=== PATIENT | female | born 1970 | race Caucasian/White ===

== ENCOUNTER 2021-09-18 10:56 | Inpatient (IN) | payer OTHER, SELFPAY ==
--- NOTE | ~2021-09-18 | CT_ITS ---
EXAMINATION: CT guide absc cath placement, CT guide absc cath placement DATE: 09/19/2021 14:54 (accession [id number]), 09/19/2021 14:51 (accession [id number]) INDICATION: Multiple intraperitoneal abscesses TECHNIQUE: The procedure including the risks and benefits was discussed with the patient. Risks discu ssed included bleeding and infection. The patient understood the risks and benefits and agreed to pro ceed. The patient was confirmed to be receiving appropriate antibiotic coverage. Attention was first turned to the largest abscess cavity in the central lower abdomen and upper pelvis. The patient was p laced in a left lateral decubitus position. The skin overlying the right lower quadrant was prepped a nd draped in usual sterile fashion. Moderate sedation was provided with successive administration of 50 mcg fentanyl and 1 mg Versed. A total of 200 mcg fentanyl and 2 mg Versed was administered through out the course of the procedure. There are 2 more accurately delineate the course of the bowel a scou t CT was obtained following administration of 100 mL Omnipaque-300 intravenous contrast. Anesthetic w as administered with 1% lidocaine subcutaneously. An 18-gauge trochar needle was advanced into the la rgest abscess cavity utilizing intermittent CT guidance. The inner needle was removed and a J-wire ad vanced into the abscess cavity with position confirmed by CT. Utilizing Seldinger technique the needl e was removed over the wire and the tract serially dilated to 12 Haitian. A 12 Fr catheter was inserte d over the wire into the peritoneal fluid collection. The loop was formed and following confirmation of positioning by CT the pigtail tip was locked and the wire removed. The catheter was stitched to th e skin with suture. Antibiotic appointment and a sterile dressing were applied. An additional adhesiv e fixation device was applied. An aliquot of 10 mL of reynoso purulent appearing fluid was aspirated and sent to the lab for Gram stain and cultures. The catheter was then attached to suction drainage. Attention was then turned to the caudal-most abscess cavity in the deep pelvis. The patient was place d in prone position. Labor Specialist CT images of the pelvis were obtained. The skin overlying the left side of the coccyx was prepped and draped in usual sterile fashion. An additional 1% lidocaine was utilized for local anesthesia. An 18-gauge trochar needle was advanced into the caudal-most pelvic abscess cav ity utilizing intermittent CT guidance. The inner needle was removed and a J-wire advanced into the a bscess cavity with position confirmed by CT. Utilizing Seldinger technique the needle was removed ove r the wire and the tract serially dilated to 8 Haitian. An 8.5 Fr catheter was inserted over the wire into the pelvic peritoneal fluid collection. The loop was formed and following confirmation of positi oning by CT the pigtail tip was locked and the wire removed. The catheter was stitched to the skin wi th suture. Antibiotic appointment and a sterile dressing were applied. An aliquot of 4 mL of reynoso puru lent appearing fluid was aspirated and sent to the lab for Gram stain and cultures. The catheter was then attached to suction drainage. There were no immediate complications. The dose-length product was 1957.80 mGy-cm. FINDINGS: CT images demonstrate the catheter within the first a 8 x 7 cm abscess cavity in the centra l lower abdomen and upper pelvis. Subsequent CT images demonstrate a second smaller caliber drainage catheter positioned within a 5.4 x 4.2 cm abscess cavity positioned between the vaginal cuff and the rectum. 10 mL fluid was aspirated for testing from the larger abdominal abscess cavity and 4 mL fluid was aspirated for testing from the more caudal pelvic abscess cavity. IMPRESSION: 1. Successful CT-guided abscess drainage of the largest 8 x 7 cm abscess cavity in the central lower abdomen/upper pelvis. 10 mL fluid was
--- NOTE | ~2021-09-18 | CT_ITS ---
EXAMINATION: CT abdomen pelvis w con INDICATION: Abdominal pressure, nausea and vomiting TECHNIQUE: Computed tomographic images of the abdomen and pelvis were obtained after the administrati on of 100 cc of Omnipaque 350 intravenous contrast. The dose-length product (DLP) was 1535.18 mGy-cm. Automated exposure control and iterative reconstruction technique were employed. COMPARISON: None available FINDINGS: Minimal dependent atelectasis is present in the lung bases. The heart size is normal. The l iver, spleen, pancreas, gallbladder, and adrenal glands are normal. The kidneys are unremarkable. The re is an appendicolith at the base of the appendix. The dilated appendix measures up to 1.5 cm. There is perforation at the tip of the appendix with multiple abdominal and pelvic abscesses. There is an approximately 10.7 x 6.1 cm abscess situated between small bowel loops in the midline pelvis. There a re abscesses measuring up to 3.5 cm near the terminal ileum. There is an abscess or pair of abscesses in the hysterectomy bed measuring 8.6 x 5.7 cm. There is an abscess near the tip of the appendix abu tting the liver. There is mild lumbar spondylosis. IMPRESSION: 1. Perforated appendicitis with multiple abdominal and pelvic abscesses. These findings were discusse d with Dr. Kristian Montalvo DO in the Emergency Department at 1331 hours on 09/18/2021. Reviewed, dictated and finalized at location A. IMPRESSION: 1. Perforated appendicitis with multiple abdominal and pelvic abscesses. These findings were discussed with Dr. Kristian Montalvo DO in the Emergency Departm ent at 1331 hours on 09/18/2021.
[2021-09-18 10:59] VITALS: BP 150/92; PULSE 106; RESP 18; TEMP 36.6; O2SAT 99
[2021-09-18 11:15] LABS: Hematocrit 40.7 % (37.0-47.0); Hemoglobin 13.5 g/dL (12.0-15.0); Mean Corpuscular HGB Conc 33.2 g/dl (32-36); Mean Corpuscular Hemoglobin 31.4 pg (26-34); Mean Corpuscular Volume 94.7 fl (80-100); Mean Platelet Volume 10.6 fl (7.4-10.4); Platelet Count Result 476 k/mm3 (150-375); Red Cell Distribution Width 14.8 % (11.5-14.5); White Blood Count 25.7 K/mm3 (4.5-10.0)
[2021-09-18 11:28] LABS: Alanine Aminotransferase 91 U/L (4-35); Alkaline Phosphatase 289 U/L (38-126); Anion Gap 8 mmol/L (8-16); Aspartate Amino Transferase 86 U/L (14-36); Bilirubin,Total 1.1 mg/dL (0.2-1.3); Blood Urea Nitrogen 13 mg/dL (7-17); Calcium 8.8 mg/dL (8.4-10.2); Carbon Dioxide 26 mmol/L (22-30); Chloride 97 mmol/L (98-107); Estimated CRCL calculation 85 ml/min; Estimated Glomerular Filt Rate > 60; Glucose 109 mg/dL (65-110); Lipase 40 U/L (23-300); Potassium 3.6 mmol/L (3.4-5.0); Sodium 131 mmol/L (137-145)
[2021-09-18 11:43] LABS: Albumin Level 3.8 g/dL (3.5-5.1)
[2021-09-18 11:44] LABS: Atypical Lymphocytes Present; Band Neutrophils Percent 3 % (0-6); Lymphocytes Absolute Manual 1.54 K/mm3 (1.1-4.5); Monocytes Absolute Manual 1.54 K/mm3 (0.1-0.90); Monocytes Percent Manual 6 % (3-9); Neutrophils Absolute Manual 22.61 K/mm3 (1.7-7.2); Neutrophils Percent Manual 85 % (46-73); Platelet Estimate Adequate (Adequate); Total Cells Counted 100
[2021-09-18 12:39] VITALS: BP 139/93; PULSE 100; RESP 18; O2SAT 95
--- NOTE | 2021-09-18 12:45 | ED.ABDPAIN ---
HPI - Abdominal Pain General Chief Complaint: Abdominal Pain Stated Complaint: possible obstruction, sent from Time Seen by Provider: 09/18/21 12:30 Source: RN notes reviewed History of Present Illness HPI narrative: Patient presents emergency department from urgent care for abdominal pain. Patient states approximately 1 week ago she vomited x1 she states since that time she has had progressive bloating of her abdomen with abdominal pain in the bilateral lower abdomen described as cramping in nature states her last bowel movement was over 10 days ago she states she is had no emesis since approximately 1 ago she denies any fevers or chills chest pain shortness of breath or any other symptoms. She gone to urgent care today and had an x-ray that showed a blockage and was recommended come the ER for further evaluation Related Data Allergies Allergy/AdvReac Type Severity Reaction Status Date / Time No Known Allergies Allergy Verified 09/18/21 12:57 Review of Systems Review of Systems: Gen.: Denies fevers or chills ENT: Denies congestion Respiratory: Denies shortness of breath or cough CV: Denies chest pain or palpitations GI: See HPI Musculoskeletal: Denies back pain or muscle pain Neuro: Denies numbness, tingling, weakness or focal weakness Skin: Denies rash Except as documented, all other systems reviewed and negative [facility] Past Medical History Medical History (Updated 09/18/21 @ 14:03 by rKistian Montalvo DO) Rosacea Social History Social History (Updated 09/18/21 @ 12:46 by Kristian Montalvo DO) Smoking status: Never smoker Exam Narrative: APPEARANCE: No acute distress, nontoxic, resting in bed HEENT: Normocephalic, atraumatic, OMM RESPIRATORY: No respiratory distress, clear to auscultation bilaterally with no rhonchi wheezing or rales CARDIOVASCULAR: RRR s murmur ABDOMINAL: Firm and distended tender palpation right lower quadrant left lower quadrant no tenderness noted quadrant left upper quadrant no rebound or guarding MUSCULOSKELETAl: Moves all extremities. No clubbing, cyanosis or edema. NEURO: Awake and alert. Following commands, speech normal, no focal deficits SKIN:: Warm, dry. Normal Color PSYCHIATRIC: Normal affect/mood Course Course Emergency Course: Discussed with Dr. Montes presentation work-up agrees with admission Discussed with patient and family results of workup and diagnosis. Discussed need for admission. Patient and family understand and agree to current treatment plan Vital Signs Vital signs: Vital Signs Temperature 97.8 F 09/18/21 10:59 Pulse Rate 106 H 09/18/21 10:59 Respiratory Rate 18 09/18/21 10:59 Blood Pressure 150/92 H 09/18/21 10:59 Pulse Oximetry 99 09/18/21 10:59 Temperature 97.8 F 09/18/21 10:59 Pulse Rate 100 09/18/21 12:39 Respiratory Rate 18 09/18/21 12:39 Blood Pressure 139/93 H 09/18/21 12:39 Pulse Oximetry 95 09/18/21 12:39 MDM - Abdominal Pain Lab Data Result diagrams: 09/18/21 11:07 09/18/21 11:07 Labs: Lab Results 09/18/21 09/18/21 09/18/21 Range/Units 11:07 11:07 12:55 WBC 25.7 H (4.5-10.0) K/mm3 RBC 4.30 (4.2-5.4) M/mm3 Hgb 13.5 (12.0-15.0) g/dL Hct 40.7 (37.0-47.0) % MCV 94.7 (80-100) fl MCH 31.4 (26-34) pg MCHC 33.2 (32-36) g/dl RDW 14.8 H (11.5-14.5) % Plt Count 476 H (150-375) k/mm3 MPV 10.6 H (7.4-10.4) fl Immature Gran % (Auto) Not Reportable Neut % (Auto) Not Reportable Lymph % (Auto) Not Reportable [place] % (Auto) Not Reportable Eos % (Auto) Not Reportable Baso % (Auto) Not Reportable Lymph # (Auto) Not Reportable [place] # (Auto) Not Reportable Eos # (Auto) Not Reportable Baso # (Auto) Not Reportable Abs Immat Gran (auto) Not Reportable Absolute Neuts (auto) Not Reportable Absolute Nucleated RBC Not Reportable Total Counted 100 Neutrophils % (Manual)
[2021-09-18] MEDS: SODIUM CHLORIDE 0.9% IV 1,000 ML 999 ML IV CONT (12:57)
[2021-09-18] MEDS: KETOROLAC 30 MG/ML VIAL (*BKC) IV PUSH (12:58)
[2021-09-18 13:09] LABS: Bacteria Urine 2+ /hpf; Mucus Urine Rare /lpf; Squamous Epithelial Cell Urine Occasional /hpf (Few); WBC Urine 0-3 /hpf
[2021-09-18 13:10] LABS: Appearance Urine Clear (Clear); Bilirubin Urine 1+ (Negative); Blood Urine Trace-lysed (Negative); Color Urine Yellow (Yellow); Glucose Urine UA Negative (Negative); Ketones Urine 2+ mg/dL (Negative); Leukocyte Esterase Ur Negative LEU/UL (Negative); Nitrate Urine Negative (Negative); Protein Urine 1+ mg/dL (Negative); Urobilinogen Urine 0.2 mg/dL (<2.0)
[2021-09-18 13:12] LABS: Add Urine Microscopic? YES
[2021-09-18 13:13] LABS: Lactic Acid Reflex 0.8 mmol/L (0.7-2.0)
[2021-09-18 14:50] VITALS: BMI 39.7
--- NOTE | 2021-09-18 14:50 | ADMGEN ---
This patient, Johana Muñoz, was admitted to 3 [facility] Surg Room 320-01. Patient/family oriented to hospital policies and general routines including ID bracelet, bed and alarms, visiting hours, pain management, procedures, bathroom and other care routines, personal items, smoking policy, room service/diet, and visiting hours. Information on how to activate the Rapid Response Team has been discussed. Patient/Family are encouraged to report perceived risks to care and to ask questions if they do not understand what they are told or what they should do.
[2021-09-18 14:52] VITALS: BP 154/95; PULSE 95; RESP 18; O2SAT 97
[2021-09-18 15:00] VITALS: BP 144/95; PULSE 95; RESP 18; TEMP 36.7; O2SAT 97
--- NOTE | 2021-09-18 15:19 | PM.IMHP ---
H&P: HPI History of Present Illness Date/Time: 09/18/21 15:19 Chief Complaint: Lower abdominal pain Narrative: This is a 50-year-old obese female who presented to the emergency department with complaints of lower abdominal pain. She was directed from a [place] urgent care today with concerns of a bowel obstruction. The patient reportedly began having symptoms 8 days ago when she developed lower abdominal pain. She developed nausea and had an episode of vomiting that night. The following day, her abdominal pain worsened and reportedly was aggravated by any movement or walking. She reports her abdominal pain began improving by Saturday and she was able to go to work all last week. She was taking Tylenol and Aleve p.m. because she thought she had strained a muscle from vomiting. She reports having 4-5 watery stools per day for the past week, but still felt bloated and thought she was constipated. She tried to take magnesium citrate without any relief in her bloating. She continued to have diarrhea. Her main complaint over the past few days is the bloating discomfort. She continues to have lower abdominal pain, but reports it is much more mild now in comparison to the first few days. She reports chills, but has checked her temperature multiple times without a fever. She reports a poor appetite over the past week as well with little food intake, but has been drinking plenty of fluids. Today, due to her persistent symptoms, she decided to go to an urgent care for further evaluation. They had taken an abdominal x-ray and were concerned about a bowel obstruction, therefore she was sent to the ER for further evaluation. CT scan of the abdomen and pelvis showed perforated appendicitis with multiple intra-abdominal abscesses. The labs showed white blood cell count of 25,700. Her heart rate was 106 in the ER and she was afebrile. Our service was consulted by the ED physician and she is admitted in the setting. The patient is now seen on the medical floor. She reports passing gas and has had 3 liquid bowel movements today. She denies having a colonoscopy in the past, but has had a negative Cologuard within the past year. Review of Systems Review of Systems: All systems reviewed & are unremarkable except as noted in HPI and below Constitutional: Constitutional: Reports as per HPI, Reports chills, Denies fatigue, Denies fever(s) and Reports poor appetite Eyes: Eyes: Reports no additional eye complaints ENT: Reports system reviewed and no additional complaints, except as documented Cardiovascular: Cardiovascular: Reports no additional cardiovascular complaints, Denies chest pain and Denies leg edema Respiratory: Respiratory: Reports no additional respiratory complaints, Denies cough and Denies dyspnea Gastrointestinal: Gastrointestinal: Reports as per HPI, Reports no additional gastrointestinal complaints, Reports abdominal pain (lower), Denies melena, Reports bloating, Denies hematochezia, Reports diarrhea, Reports vomiting and Denies hematemesis Genitourinary: Genitourinary: Reports no additional female genitourinary complaints, Denies hematuria and Denies dysuria Musculoskeletal: Musculoskeletal: Reports no additional musculoskeletal complaints, Denies deformity and Denies joint swelling Neurologic: Reports system reviewed and no additional complaints, except as documented, Denies dizziness, Denies focal weakness, Denies numbness and Denies tingling PMFSH Past Medical History Medical History Rosacea Tobacco abuse Surgical History Surgical History History of tubal ligation History of vaginal hysterectomy Family History Family History (Updated 09/18/21 @ 15:31 by ROHIT Reyes) Mother Hypertension Social History Social History Social History: PC
[2021-09-18] MEDS: SODIUM CHLORIDE 0.9% IV 1,000 ML 125 ML IV CONT (15:28)
[2021-09-18 20:16] VITALS: O2SAT 95
[2021-09-18] MEDS: MORPHINE SULFATE (*CRX) 2 MG/ML INJ IV PUSH (21:53)
[2021-09-18 22:00] VITALS: BP 147/91; PULSE 98; RESP 18; TEMP 36.8; O2SAT 96
[2021-09-19] VITALS (27 sets, daily range): BP systolic 107–165; BP diastolic 71–120; PULSE 90–103; RESP 16–29; TEMP 36.2–37; O2SAT 93–98
[2021-09-19] MEDS: SODIUM CHLORIDE 0.9% IV 1,000 ML 125 ML IV CONT ×4 (01:33→23:34)
[2021-09-19] MEDS: MORPHINE SULFATE (*CRX) 2 MG/ML INJ IV PUSH ×5 (01:41→23:33)
[2021-09-19 06:09] LABS: Hematocrit 34.2 % (37.0-47.0); Hemoglobin 11.6 g/dL (12.0-15.0); Mean Corpuscular HGB Conc 33.9 g/dl (32-36); Mean Corpuscular Hemoglobin 31.7 pg (26-34); Mean Corpuscular Volume 93.4 fl (80-100); Mean Platelet Volume 10.5 fl (7.4-10.4); Platelet Count Result 467 k/mm3 (150-375); Red Blood Count 3.66 M/mm3 (4.2-5.4); Red Cell Distribution Width 14.7 % (11.5-14.5); White Blood Count 22.4 K/mm3 (4.5-10.0)
[2021-09-19 06:23] LABS: Alanine Aminotransferase 91 U/L (4-35); Alkaline Phosphatase 216 U/L (38-126); Anion Gap 6 mmol/L (8-16); Aspartate Amino Transferase 92 U/L (14-36); Bilirubin,Total 0.8 mg/dL (0.2-1.3); Blood Urea Nitrogen 11 mg/dL (7-17); Carbon Dioxide 28 mmol/L (22-30); Chloride 103 mmol/L (98-107); Estimated CRCL calculation 85 ml/min; Estimated Glomerular Filt Rate > 60; Glucose 85 mg/dL (65-110); Potassium 3.6 mmol/L (3.4-5.0); Sodium 137 mmol/L (137-145)
[2021-09-19 06:38] LABS: Atypical Lymphocytes Present; Band Neutrophils Percent 7 % (0-6); Lymphocytes Absolute Manual 1.79 K/mm3 (1.1-4.5); Metamyelocytes Percent 2 %; Monocytes Absolute Manual 1.34 K/mm3 (0.1-0.90); Monocytes Percent Manual 6 % (3-9); Neutrophils Absolute Manual 18.81 K/mm3 (1.7-7.2); Neutrophils Percent Manual 77 % (46-73); Total Cells Counted 100
[2021-09-19 06:39] LABS: Anisocytosis 1+ (NORMAL); Hypochromasia 1+ (NORMAL)
[2021-09-19 08:36] LABS: INR 1.2; Prothrombin Time 14.4 Seconds (11.1-14.7)
--- NOTE | 2021-09-19 10:57 | PC.NURSE ---
pt scheduled for percutaneous drain placement this afternoon around 1230pm and 1300
--- NOTE | 2021-09-19 11:39 | PM.PNGS ---
Progress Note: A&P Assessment and Plan (1) Acute perforated appendicitis: Code(s): K35.32 - Acute appendicitis with perforation and localized peritonitis, without abscess Status: Acute Assessment and Plan: Continue IV antibiotics. WBC trending down, afebrile. Okay to start clear liquids once back from the percutaneous drainage. Monitor labs. Encouraged walking the halls. (2) Intra-abdominal abscess: Code(s): K65.1 - Peritoneal abscess Status: Acute Assessment and Plan: Plan for percutaneous drainage in Radiology today. Continue IV antibiotics. (3) Sepsis: Code(s): A41.9 - Sepsis, unspecified organism Status: Acute Assessment and Plan: Secondary to perforated appendicitis with abscess. Continue IV antibiotics and IV fluids. Blood cultures pending. WBC trending down. Monitor labs. (4) Obesity, morbid, BMI 40.0-49.9: Code(s): E66.01 - Morbid (severe) obesity due to excess calories Status: Acute (5) Tobacco abuse: Code(s): Z72.0 - Tobacco use Status: Inactive (6) Transaminitis: Code(s): R74.01 - Elevation of levels of liver transaminase levels Status: Acute Assessment and Plan: AST, ALT, and alk phos slightly elevated on admission, same today. Will add Hepatitis panel. Trend labs. Additional Plan I have discussed the patient's case and plan of care with Dr. Montes. Subjective Subjective Date/Time Seen: 09/19/21 11:39 Patient reports: still having pain, flatus, bowel movement and afebrile Interval history: Patient seen and examined. Reports feeling about the same as yesterday. She is passing gas and had a bowel movement last night. Denies any nausea. Scheduled to go down to Radiology for perc drain today. Currently NPO for that procedure. Review of Systems Review of Systems: All systems reviewed & are unremarkable except as noted in HPI and below Exam Const: General: comfortable, no acute distress and awake Orientation/consciousness: patient oriented x3 Resp: Effort & Inspection: no respiratory distress Auscultation: clear to auscultation bilaterally Cardio: Rate: regular rate Rhythm: regular rhythm GI: Inspection: distended and obesity GI Palp: Yes Soft to palpation, Yes Tenderness to palpation present (GI) (mid upper abdomen and entire lower abd), Yes Guarding due to palpation present (GI) (lower abdomen), No Hernia present and No Rebound tenderness present Auscultation: normal bowel sounds Skin: General skin exam: normal color Neuro: General: moves all extremities and no focal motor deficits Extrem: General: normal to inspection Psych: Insight: Good insight present (Psych) Judgement: Good judgement present (Psych) Objective Data Vital Signs Vital Signs: Vital Signs - 24 hr 09/18/21 12:39 09/18/21 14:52 09/18/21 15:00 Temperature 98.1 F Pulse Rate 100 95 95 Respiratory Rate 18 18 18 Blood Pressure 139/93 H 154/95 H 144/95 H Pulse Oximetry 95 97 97 09/18/21 20:16 09/18/21 22:00 09/19/21 06:00 Temperature 98.2 F 97.1 F L Pulse Rate 98 92 Respiratory Rate 18 18 Blood Pressure 147/91 H 132/80 Pulse Oximetry 95 96 94 09/19/21 07:35 09/19/21 08:16 Temperature Pulse Rate 92 Respiratory Rate 18 Blood Pressure Pulse Oximetry 94 95 Intake/Output Intake/Output: Intake & Output 09/16/21 09/17/21 09/18/21 09/19/21 23:59 23:59 23:59 23:59 Intake Total 2680 1200 Output Total 400 1250 Balance 2280 -50 Meds/Results Medications: Active Medications Generic Name Dose Route Start Last Admin Trade Name Freq PRN Reason Stop Dose Admin Piperacillin/Tazobactam/Dextrose 3.375 gm in 50 mls @ 100 mls/hr 09/18/21 20:00 09/19/21 08:57 Zosyn 3.375 Gm/D5w 50ml Pm IVPB Infused Q6H [facility] Infusion Sodium Chloride 1,000 mls @ 125 mls/hr 09/18/21 13:55 09/19/21 08:44 Normal Saline Iv IV CONT 125 mls/hr .Q8H [facility] Administration A
--- NOTE | 2021-09-19 11:50 | PC.NURSE ---
pt at percutaneous drain placement in IR.
--- NOTE | 2021-09-19 12:10 | WPDMODSED ---
Moderate Sedation Note-Pt Data Patient Data Allergies Allergy/AdvReac Type Severity Reaction Status Date / Time No Known Allergies Allergy Verified 09/18/21 12:57 Home Medications Medication Instructions Recorded Confirmed Type aspirin [Adult Aspirin EC Low 81 mg PO DAILY 09/18/21 09/18/21 History Strength] cholecalciferol (vitamin D3) 50 mcg PO DAILY 09/18/21 09/18/21 History doxycycline hyclate 25 mg PO BID 09/18/21 09/18/21 History loratadine 30 mg PO DAILY 09/18/21 09/18/21 History Current Medications: Active Medications Piperacillin/Tazobactam/Dextrose (Zosyn 3.375 Gm/D5w 50ml Pm) 3.375 gm in 50 mls @ 100 mls/hr IVPB Q6H [facility] Last Infusion: 09/19/21 08:57 Dose: Infused Documented by: Sodium Chloride (Normal Saline Iv) 1,000 mls @ 125 mls/hr IV CONT .Q8H [facility] Last Admin: 09/19/21 08:44 Dose: 125 mls/hr Documented by: Acetaminophen (Ofirmev 1,000 Mg Ivpb) 1,000 mg in 100 mls @ 400 mls/hr IVPB Q6H PRN PRN Reason: Pain Rated 4-6 Stop: 09/19/21 15:39 Last Infusion: 09/19/21 06:37 Dose: Infused Documented by: Morphine Sulfate (Morphine Sulfate (*Crx) 2 Mg/Ml Inj) 2 mg IV PUSH Q2H PRN PRN Reason: Pain Rated 7-10 Last Admin: 09/19/21 01:41 Dose: 2 mg Documented by: Ondansetron HCl (Ondansetron Inj 4 Mg/2 Ml Vial) 4 mg IV PUSH Q6H PRN PRN Reason: Nausea And Vomiting Sedation/Anesthesia: No previous sedation/anesthesia problems (including family history). [facility] Past Medical History Medical History Rosacea Tobacco abuse Surgical History Surgical History History of tubal ligation History of vaginal hysterectomy Family History Family History Mother Hypertension Social History Social History Social History: PCP through [facility]: Dr. Domi Albert Years smoked: 30 Smoking status: Current every day smoker Tobacco type: cigarettes Second hand tobacco smoke exposure: No Alcohol intake: current Drinks per week: 3 Substance use: never Living arrangements: with family Additional living arrangements comments: Lives at home alone with her dog. She is not currently and has one child. 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 Gender identity (if verbalized by the patient): Female Spiritual care concerns: No Mod Sed Physical Exam Physical Exam Pre Procedural Exam: Normal: Appearance, Eyes, Nose, Neck, Airway, Lungs, Heart Rate, Heart Rhythm, Extremities and Skin and Variation: Abdomen (soft, ttp lower abd) Hours since solid foods: 12 Hours since liquid intake: 12 Mallampati Classification: class II Internal Medicine - PN: Obj Da Vital Signs Vital Signs: Vital Signs - 24 hr 09/18/21 12:39 09/18/21 14:52 09/18/21 15:00 Temperature 98.1 F Pulse Rate 100 95 95 Respiratory Rate 18 18 18 Blood Pressure 139/93 H 154/95 H 144/95 H Pulse Oximetry 95 97 97 09/18/21 20:16 09/18/21 22:00 09/19/21 06:00 Temperature 98.2 F 97.1 F L Pulse Rate 98 92 Respiratory Rate 18 18 Blood Pressure 147/91 H 132/80 Pulse Oximetry 95 96 94 09/19/21 07:35 09/19/21 08:16 Temperature Pulse Rate 92 Respiratory Rate 18 Blood Pressure Pulse Oximetry 94 95 Intake/Output Intake/Output: Intake & Output 09/16/21 09/17/21 09/18/21 09/19/21 23:59 23:59 23:59 23:59 Intake Total 2680 1200 Output Total 400 1250 Balance 2280 -50 Meds/Results Medications: Active Medications Generic Name Dose Route Start Last Admin Trade Name Freq PRN Reason Stop Dose Admin Piperacillin/Tazobactam/Dextrose 3.375 gm in 50 mls @ 100 mls/hr 09/18/21 20:00 09/19/21 08:57 Zosyn 3.375 Gm/D5w 50ml Pm IVPB Infused Q6H [facility] Infusi
--- NOTE | 2021-09-19 12:54 | PC.NURSE ---
ok to start clear liquid diet after percutaneous drain placement this shift.
--- NOTE | 2021-09-19 13:11 | SUR.OPER ---
see moderate sedation flowsheet for medication
--- NOTE | 2021-09-19 13:48 | SUR.OPER ---
this rn took over patient care for mandy walker. report received from denise galvan and dr hdz
--- NOTE | 2021-09-19 14:26 | SUR.OPER ---
end of procedure
--- NOTE | 2021-09-19 14:32 | SUR.PHASEII ---
vss, patient is a/ox3 on ra and able to sit on side of table steadily.
--- NOTE | 2021-09-19 15:14 | PC.NURSE ---
x2 percutaneous drain placed 09/19/21 in IR, drain 1. RLQ and drain 2. L buttock
[2021-09-20] MEDS: MORPHINE SULFATE (*CRX) 2 MG/ML INJ IV PUSH ×3 (05:35→14:04)
[2021-09-20 05:42] VITALS: BP 149/76; PULSE 91; RESP 18; TEMP 36.9; O2SAT 90
[2021-09-20 06:37] LABS: Basophils Percent Auto 0.2 % (0.2-1.2); Eosinophils Absolute Auto 0.1 K/mm3 (0-0.3); Eosinophils Percent Auto 0.6 % (0-4.4); Hematocrit 36.3 % (37.0-47.0); Hemoglobin 11.1 g/dL (12.0-15.0); Immature Granulocyte Absolute 1.42 K/mm3 (0.00-0.031); Immature Granulocyte Percent A 5.8 % (0-0.5); Lymphocytes Absolute Auto 1.35 K/mm3 (0.9-3.2); Lymphocytes Percent Auto 5.5 % (18.3-44.2); Mean Corpuscular HGB Conc 30.6 g/dl (32-36); Mean Corpuscular Hemoglobin 31.5 pg (26-34); Mean Corpuscular Volume 103.1 fl (80-100); Mean Platelet Volume 10.6 fl (7.4-10.4); Monocytes Absolute Auto 0.7 K/mm3 (0.1-0.6); Monocytes Percent Auto 2.9 % (2.6-8.5); Neutrophils Absolute Auto 20.8 K/mm3 (1.3-6.7); Platelet Count Result 438 k/mm3 (150-375); Red Blood Count 3.52 M/mm3 (4.2-5.4); Red Cell Distribution Width 15.5 % (11.5-14.5); White Blood Count 24.5 K/mm3 (4.5-10.0)
[2021-09-20 07:20] LABS: Hepatitis B Surface Antigen Negative (Negative)
[2021-09-20 07:24] VITALS: PULSE 91; RESP 18; O2SAT 90
[2021-09-20 07:25] LABS: HAV RESULT Negative (Negative); Hepatitis B Core IgM Result Negative (Negative)
[2021-09-20 07:37] LABS: Hepatitis C Virus Antibody Negative (Negative)
[2021-09-20 07:59] VITALS: O2SAT 95
[2021-09-20] MEDS: SODIUM CHLORIDE 0.9% IV 1,000 ML 125 ML IV CONT ×2 (08:44→18:28)
--- NOTE | 2021-09-20 11:06 | PM.PNGS ---
Progress Note: A&P Assessment and Plan (1) Acute perforated appendicitis: Code(s): K35.32 - Acute appendicitis with perforation and localized peritonitis, without abscess Status: Acute Assessment and Plan: Doing well after drains placed yesterday. Advance to full liquids today and decrease IV fluids. Continue IV Zosyn, monitor drains. (2) Intra-abdominal abscess: Code(s): K65.1 - Peritoneal abscess Status: Acute (3) Sepsis: Code(s): A41.9 - Sepsis, unspecified organism Status: Acute (4) Obesity, morbid, BMI 40.0-49.9: Code(s): E66.01 - Morbid (severe) obesity due to excess calories Status: Acute (5) Transaminitis: Code(s): R74.01 - Elevation of levels of liver transaminase levels Status: Acute Assessment and Plan: Likely related to abscesses, but will continue to monitor. Subjective Subjective Date/Time Seen: 09/20/21 11:06 Interval history: Pain improving. Tolerating clear liquids. No fevers. Passing flatus. Exam GI: Inspection: non-distended, obesity and other (Right drian with copious purulent output, Left drain with minimal serosangu) GI Palp: Yes Soft to palpation, Yes Tenderness to palpation present (GI) (mild generalized) and No Guarding due to palpation present (GI) Auscultation: normal bowel sounds Objective Data Vital Signs Vital Signs: Vital Signs - 24 hr 09/19/21 12:13 09/19/21 12:18 09/19/21 12:23 Temperature Pulse Rate 97 98 94 Respiratory Rate 18 18 26 H Blood Pressure 153/94 H 156/86 H 160/82 H Pulse Oximetry 98 93 97 09/19/21 12:28 09/19/21 12:33 09/19/21 12:38 Temperature Pulse Rate 93 90 98 Respiratory Rate 24 H 24 H 26 H Blood Pressure 142/85 H 137/113 H 136/120 H Pulse Oximetry 97 97 96 09/19/21 12:48 09/19/21 12:53 09/19/21 12:58 Temperature Pulse Rate 103 H 100 94 Respiratory Rate 22 H 20 18 Blood Pressure 142/110 H 126/93 H 142/96 H Pulse Oximetry 98 96 97 09/19/21 13:03 09/19/21 13:08 09/19/21 13:13 Temperature Pulse Rate 95 95 95 Respiratory Rate 17 22 H 18 Blood Pressure 135/81 107/71 126/102 H Pulse Oximetry 97 96 96 09/19/21 13:18 09/19/21 13:30 09/19/21 13:45 Temperature Pulse Rate 90 98 98 Respiratory Rate 23 H 28 H 19 Blood Pressure 132/73 165/111 H 154/94 H Pulse Oximetry 96 98 94 09/19/21 13:55 09/19/21 14:00 09/19/21 14:05 Temperature Pulse Rate 94 90 90 Respiratory Rate 20 29 H 28 H Blood Pressure 135/83 154/94 H 137/94 H Pulse Oximetry 95 95 96 09/19/21 14:10 09/19/21 14:15 09/19/21 14:20 Temperature Pulse Rate 95 92 92 Respiratory Rate 25 H 23 H 23 H Blood Pressure 124/96 H 150/95 H 135/92 H Pulse Oximetry 96 95 95 09/19/21 14:25 09/19/21 14:28 09/19/21 22:00 Temperature 37.0 C Pulse Rate 92 94 91 Respiratory Rate 23 H 16 16 Blood Pressure 143/94 H 143/94 H 140/82 Pulse Oximetry 95 93 93 09/20/21 05:42 09/20/21 07:24 09/20/21 07:59 Temperature 36.9 C Pulse Rate 91 91 Respiratory Rate 18 18 Blood Pressure 149/76 H Pulse Oximetry 90 90 95 Intake/Output Intake/Output: Intake & Output 09/17/21 09/18/21 09/19/21 09/20/21 23:59 23:59 23:59 23:59 Intake Total 2680 4440 1840 Output Total 400 1750 1000 Balance 2280 2690 840 Meds/Results Medications: Active Medications Generic Name Dose Route Start Last Admin Trade Name Freq PRN Reason Stop Dose Admin Piperacillin/Tazobactam/Dextrose 3.375 gm in 50 mls @ 100 mls/hr 09/18/21 20:00 09/20/21 08:32 Zosyn 3.375 Gm/D5w 50ml Pm IVPB Infused Q6H BELKIS Infusion Sodium Chloride 1,000 mls @ 75 mls/hr 09/18/21 13:55 09/20/21 08:44 Normal Saline Iv IV CONT 125 mls/hr .[id number] BELKIS Administration Acetaminophen 1,000 mg in 100 mls @ 400 mls/hr 09/20/21 07:40 09/20/21 08:17 Ofirmev 1,000 Mg Ivpb IVPB 09/21/21 07:39 Infused Q6H PRN Infusion Pain Rated 4-6 Morphine Sulfate 2 mg 09/18/21 15:40 09/20/21 08:02 Morph
[2021-09-20 14:00] VITALS: BP 116/86; PULSE 93; RESP 14; TEMP 38.1; O2SAT 94
--- NOTE | 2021-09-20 15:11 | PC.NURSE ---
reported temperature 101.1 to An
--- NOTE | 2021-09-20 15:14 | PC.NURSE ---
DO Villegas informed pt has temp 101.1 awaiting call back.
[2021-09-20 16:38] VITALS: TEMP 36.8
[2021-09-20 21:42] VITALS: BP 150/74; PULSE 94; RESP 16; TEMP 37.2; O2SAT 94
[2021-09-21] MEDS: MORPHINE SULFATE (*CRX) 2 MG/ML INJ IV PUSH ×2 (00:08→07:59)
[2021-09-21 05:35] VITALS: BP 144/77; PULSE 88; RESP 16; TEMP 36.4; O2SAT 92
[2021-09-21 06:19] LABS: Hematocrit 32.6 % (37.0-47.0); Mean Corpuscular HGB Conc 33.7 g/dl (32-36); Mean Corpuscular Hemoglobin 32.4 pg (26-34); Mean Corpuscular Volume 96.2 fl (80-100); Mean Platelet Volume 10.4 fl (7.4-10.4); Platelet Count Result 457 k/mm3 (150-375); Red Blood Count 3.39 M/mm3 (4.2-5.4); Red Cell Distribution Width 14.8 % (11.5-14.5); White Blood Count 22.3 K/mm3 (4.5-10.0)
[2021-09-21 06:33] LABS: Alanine Aminotransferase 109 U/L (4-35); Albumin Level 2.8 g/dL (3.5-5.1); Alkaline Phosphatase 200 U/L (38-126); Anion Gap 7 mmol/L (8-16); Aspartate Amino Transferase 90 U/L (14-36); Bilirubin,Total 0.7 mg/dL (0.2-1.3); Blood Urea Nitrogen 5 mg/dL (7-17); Calcium 7.8 mg/dL (8.4-10.2); Carbon Dioxide 24 mmol/L (22-30); Chloride 106 mmol/L (98-107); Estimated CRCL calculation 110 ml/min; Estimated Glomerular Filt Rate > 60; Glucose 89 mg/dL (65-110); Potassium 3.3 mmol/L (3.4-5.0); Sodium 137 mmol/L (137-145)
[2021-09-21] MEDS: SODIUM CHLORIDE 0.9% IV 1,000 ML 125 ML IV CONT (08:01)
--- NOTE | 2021-09-21 11:11 | PM.PNGS ---
Progress Note: A&P Assessment and Plan (1) Acute perforated appendicitis: Code(s): K35.32 - Acute appendicitis with perforation and localized peritonitis, without abscess Status: Acute Assessment and Plan: S/p perc drain placement x 2 on 09/19. Left transgluteal drain with no output over the past 24 hours. Right perc drain with decreasing output, but still draining. Switched IV antibiotics to Levaquin and Flagyl. Preliminary abscess cultures showing growth of Bacteroides species not B fragilis, E. coli, and streptococcus constellatus. Advance to regular diet, stop IV fluids. Will add oral analgesics for pain control. (2) Intra-abdominal abscess: Code(s): K65.1 - Peritoneal abscess Status: Acute (3) Sepsis: Code(s): A41.9 - Sepsis, unspecified organism Status: Acute Assessment and Plan: WBC slowly trending down, 22,300 today. Blood cultures NGTD. Continue IV antibiotics, monitor labs. (4) Obesity, morbid, BMI 40.0-49.9: Code(s): E66.01 - Morbid (severe) obesity due to excess calories Status: Acute (5) Transaminitis: Code(s): R74.01 - Elevation of levels of liver transaminase levels Status: Acute Assessment and Plan: Likely related to abscesses, but will continue to monitor. Additional Plan I have discussed the plan of care with Dr. Montes. Subjective Subjective Date/Time Seen: 09/21/21 11:11 Patient reports: no new complaints, pain is less, voiding w/o difficulty, flatus and bowel movement (x 2 this morning) Interval history: Patient seen and examined. She reports still having lower abdominal pain, worse on the right, but improved since admission. She has had 2 more formed bowel movements this morning. She denies any nausea or vomiting and is tolerating a full liquid diet well. She had a temperature of 100.5F yesterday afternoon and received Tylenol, but has been afebrile since. Left transgluteal perc drain with 0 cc output since yesterday and 150 cc in the right lower quadrant drain yesterday. Review of Systems Review of Systems: All systems reviewed & are unremarkable except as noted in HPI and below Exam Const: General: no acute distress and awake Orientation/consciousness: patient oriented x3 Resp: Effort & Inspection: no respiratory distress Auscultation: clear to auscultation bilaterally Cardio: Rate: regular rate Rhythm: regular rhythm GI: Inspection: non-distended, obesity and other (Right drian with copious purulent output, Left drain with scant serous) GI Palp: Yes Soft to palpation, Yes Tenderness to palpation present (GI) (across lower abd, improved) and No Guarding due to palpation present (GI) Auscultation: normal bowel sounds Neuro: General: moves all extremities and no focal motor deficits Extrem: General: normal to inspection Psych: Insight: Good insight present (Psych) Judgement: Good judgement present (Psych) Objective Data Vital Signs Vital Signs: Vital Signs - 24 hr 09/20/21 14:00 09/20/21 16:38 09/20/21 21:42 Temperature 100.5 F H 98.3 F 98.9 F Pulse Rate 93 94 Respiratory Rate 14 16 Blood Pressure 116/86 150/74 H Pulse Oximetry 94 94 09/21/21 05:35 Temperature 97.6 F Pulse Rate 88 Respiratory Rate 16 Blood Pressure 144/77 H Pulse Oximetry 92 Intake/Output Intake/Output: Intake & Output 09/18/21 09/19/21 09/20/21 09/21/21 23:59 23:59 23:59 23:59 Intake Total 2680 4440 3880 1920 Output Total 400 1750 1850 1300 Balance 2280 2690 2030 620 Meds/Results Medications: Active Medications Generic Name Dose Route Start Last Admin Trade Name Freq PRN Reason Stop Dose Admin Acetaminophen 650 mg 09/21/21 11:09 Acetaminophen 325 Mg Tablet PO Q6H PRN Mild Pain (1-3) or Fever Hydrocodone Bitart/Acetaminophen 1 tab 09/21/21 11:09 Hydrocodone/Acetaminophen (*Crx) 5-325 Mg Tablet PO Q4H PRN Pain Rated 4-6 Hydrocodone Bitart/Acetaminophen 1 ta
[2021-09-21] MEDS: POTASSIUM CHLORIDE 20 MEQ TABLET 40 MEQ PO (11:24)
[2021-09-21] MEDS: HYDROcodone/acetaminophen (*CRX) 7.5-325 MG TABLET 1 TAB PO ×2 (11:24→16:13)
[2021-09-21] MEDS: metroNIDAZOLE 500 MG/ISO 100ML 500 MG/100 ML BAG 100 MG IVPB ×3 (13:00→23:35)
--- NOTE | 2021-09-21 15:18 | PCCCNOTE ---
On 09/21/21, the student, [Radha Henderson], provided care and completed [facility] documentation on this patient. I have reviewed the student's documentation and agree with the findings.
[2021-09-21 16:03] VITALS: BP 170/96; PULSE 90; RESP 16; TEMP 37.6; O2SAT 96
[2021-09-21] MEDS: HYDROcodone/acetaminophen (*CRX) 5-325 MG TABLET 1 TAB PO (20:40)
[2021-09-21 22:00] VITALS: BP 143/81; PULSE 91; RESP 18; TEMP 36.6; O2SAT 95
[2021-09-22 06:00] VITALS: BP 147/98; PULSE 90; RESP 18; TEMP 37.1; O2SAT 98
[2021-09-22] MEDS: HYDROcodone/acetaminophen (*CRX) 7.5-325 MG TABLET 1 TAB PO ×2 (06:20→14:35)
[2021-09-22] MEDS: metroNIDAZOLE 500 MG/ISO 100ML 500 MG/100 ML BAG 100 MG IVPB ×2 (06:21→11:24)
[2021-09-22 06:41] LABS: Hematocrit 36.4 % (37.0-47.0); Hemoglobin 11.5 g/dL (12.0-15.0); Mean Corpuscular HGB Conc 31.6 g/dl (32-36); Mean Corpuscular Hemoglobin 31.2 pg (26-34); Mean Corpuscular Volume 98.6 fl (80-100); Mean Platelet Volume 10.4 fl (7.4-10.4); Platelet Count Result 555 k/mm3 (150-375); Red Blood Count 3.69 M/mm3 (4.2-5.4); Red Cell Distribution Width 14.6 % (11.5-14.5); White Blood Count 18.4 K/mm3 (4.5-10.0)
[2021-09-22 06:51] LABS: Alanine Aminotransferase 89 U/L (4-35); Albumin Level 3.1 g/dL (3.5-5.1); Alkaline Phosphatase 206 U/L (38-126); Anion Gap 7 mmol/L (8-16); Aspartate Amino Transferase 65 U/L (14-36); Bilirubin,Total 0.5 mg/dL (0.2-1.3); Blood Urea Nitrogen 7 mg/dL (7-17); Calcium 8.5 mg/dL (8.4-10.2); Carbon Dioxide 25 mmol/L (22-30); Chloride 104 mmol/L (98-107); Estimated CRCL calculation 96 ml/min; Estimated Glomerular Filt Rate > 60; Glucose 92 mg/dL (65-110); Potassium 3.7 mmol/L (3.4-5.0); Sodium 136 mmol/L (137-145)
[2021-09-22 07:27] LABS: Band Neutrophils Percent 10 % (0-6); Lymphocytes Absolute Manual 0.55 K/mm3 (1.1-4.5); Monocytes Absolute Manual 0.92 K/mm3 (0.1-0.90); Monocytes Percent Manual 5 % (3-9); Neutrophils Absolute Manual 16.92 K/mm3 (1.7-7.2); Neutrophils Percent Manual 82 % (46-73); Total Cells Counted 100
[2021-09-22 14:00] VITALS: BP 105/70; PULSE 69; RESP 18; TEMP 36.1; O2SAT 97
--- NOTE | 2021-09-22 14:08 | PM.DS ---
DS: Admitting Diagnosis Discharge Date Perforated appendicitis with abscess Admitting Diagnosis 10/08/2021 DS: Discharge Diagnosis Discharge Diagnosis (1) Acute perforated appendicitis: Code(s): K35.32 - Acute appendicitis with perforation and localized peritonitis, without abscess Status: Acute Assessment and Plan: Pain improving, tolerating diet, and remaining afebrile. Left gluteal drain removed today. Will keep right lower quadrant drain in place until next week. (2) Intra-abdominal abscess: Code(s): K65.1 - Peritoneal abscess Status: Acute (3) Obesity, morbid, BMI 40.0-49.9: Code(s): E66.01 - Morbid (severe) obesity due to excess calories Status: Acute (4) Transaminitis: Code(s): R74.01 - Elevation of levels of liver transaminase levels Status: Acute DS: Summary Hospital Course Reason for hospitalization: Perforated appendicitis Hospital Course: This is a 50-year-old woman who presented to the emergency department on 09/18/2021. She was complaining of lower abdominal pain for the past 8 days. She denied any fevers or chills. Pain progressively worsened and she went to an urgent care. An abdominal x-ray showed possible bowel obstruction, therefore she was referred to the emergency department for further evaluation. She had a significantly elevated white blood count at 25,[address] showed evidence of perforated appendicitis with multiple intra-abdominal abscesses. She was admitted to the hospital placed on broad-spectrum IV antibiotics. The CT was reviewed with Radiology and the 2 larger abscess is appeared to be in a position that should be accessible for percutaneous drainage. She underwent percutaneous drainage of 2 of the abscesses on 09/19/2021. Her white blood count began slowly coming down over the next several days. Her liver enzymes remain stable and started trending down towards normal after the infection was adequately treated. The abscess fluid from the percutaneous drain was cultured and initial cultures showed multi organism infection. One of the cultures was showing beta lactamase resistance, therefore she was switched from IV Zosyn to Levaquin and Flagyl. She did have a fever on 09/20/2021, but she remained afebrile on 09/21 and 09/22. She was tolerating her diet and pain was adequately controlled on 09/22/2021. Her left gluteal drain was removed on 09/22/2021 as it had minimal to no output and was mostly serous. The right lower quadrant drain was still draining scant purulence fluid therefore this was left in place. She was discharged on 09/22/2021 with instructions on drain care. Status at Discharge Functional status at discharge: independent ambulation Overall status at discharge: patient is progressing back to baseline Time Spent with Patient Time attestation: Total time spent providing and/or coordinating discharge services: Time spent: Less than 30 minutes Exam Const: General: cooperative, no acute distress and alert Orientation/consciousness: patient oriented x3 Resp: Auscultation: clear to auscultation bilaterally Cardio: Jugular venous distension: no JVD Rate: regular rate Rhythm: regular rhythm Heart sounds: S1 normal heart sound present and S2 normal heart sound present GI: Inspection: non-distended and obesity GI Palp: Yes Soft to palpation, Yes Tenderness to palpation present (GI) (mild lower abdominal) and No Guarding due to palpation present (GI) Percussion: Yes normal to percussion Auscultation: normal bowel sounds Other: Left gluteal pigtail drain with minimal serous output. RLQ pigtail drain with scant purulent/serous output. DS: Data Data Completed and Pending Labs on day of discharge: Labs from last 24 hours 09/22/21 09/22/21 06:17 06:17 WBC 18.4 H RBC 3.69 L Hgb 11.5 L Hct 36.4 L MCV 98.6 MCH 31.2 MCHC 31.6 L RDW 14.6 H Plt Count 555 H MPV 10.4 Immature Gran % (Auto) Not Reporta
--- NOTE | 2021-09-22 14:44 | PCCCNOTE ---
On 09/22/21, the student, [Marlena Henderson], provided care and completed [facility] documentation on this patient. I have reviewed the student's documentation and agree with the findings.
== END 2021-09-22 16:45 | disposition home or self-care (01) | DRG 871 ==
LOC: ANHED 14:03 → ANH3MEDSUR 14:36
PROVIDERS: Emergency Medicine; Nurse Practitioner Family; Radiology Diagnostic Radiology; Admitting Provider Surgery; Emergency Provider Emergency Medicine; Visit Provider Surgery
PROC: 0W9J30Z Drainage of Pelvic Cavity with Drainage Device, Percutaneous Approach (ICD-10-PCS; CPT 75989; principal; 2021-09-19 13:00)
DX: A41.9 Sepsis, unspecified organism (principal); K35.33 Acute appendicitis with perforation, localized peritonitis, and gangrene, with abscess; E66.01 Morbid (severe) obesity due to excess calories; L71.9 Rosacea, unspecified; F17.210 Nicotine dependence, cigarettes, uncomplicated; R74.01 Elevation of levels of liver transaminase levels; Z68.39 Body mass index [BMI] 39.0-39.9, adult
CPT/HCPCS: 36415; 74177; 75989; 80053; 80074; 81001; 83605; 83690; 85025; 85027; 85610; 87040; 87070; 87075; 87076; 87077; 87147; 87181; 87186; 87205; 96361; 96365; 96375; 99285; A9270; C1729; C1769; G0378; J0131; J1885; J1956; J2250; J2270; J2543; J3010; J7030; J7040; Q9967

== ENCOUNTER 2021-09-25 12:08 | Outpatient (CLI) | payer OTHER, SELFPAY ==
[2021-09-25 12:48] LABS: Basophils Absolute Auto 0.1 K/mm3 (0.0-0.1); Basophils Percent Auto 0.5 % (0.2-1.2); Eosinophils Absolute Auto 0.3 K/mm3 (0-0.3); Eosinophils Percent Auto 2.6 % (0-4.4); Hematocrit 35.8 % (37.0-47.0); Hemoglobin 11.6 g/dL (12.0-15.0); Immature Granulocyte Absolute 0.25 K/mm3 (0.00-0.031); Immature Granulocyte Percent A 2.1 % (0-0.5); Lymphocytes Absolute Auto 1.11 K/mm3 (0.9-3.2); Lymphocytes Percent Auto 9.1 % (18.3-44.2); Mean Corpuscular HGB Conc 32.4 g/dl (32-36); Mean Corpuscular Hemoglobin 31.5 pg (26-34); Mean Corpuscular Volume 97.3 fl (80-100); Mean Platelet Volume 10.1 fl (7.4-10.4); Monocytes Absolute Auto 0.7 K/mm3 (0.1-0.6); Monocytes Percent Auto 5.7 % (2.6-8.5); Neutrophils Absolute Auto 9.7 K/mm3 (1.3-6.7); Platelet Count Result 672 k/mm3 (150-375); Red Blood Count 3.68 M/mm3 (4.2-5.4); Red Cell Distribution Width 14.6 % (11.5-14.5); White Blood Count 12.2 K/mm3 (4.5-10.0)
[2021-09-25 12:58] LABS: Alanine Aminotransferase 46 U/L (6-35); Albumin Level 3.2 g/dL (3.5-5.1); Alkaline Phosphatase 156 U/L (38-126); Anion Gap 9 mmol/L (8-16); Aspartate Amino Transferase 51 U/L (14-36); Bilirubin,Total 0.3 mg/dL (0.2-1.3); Blood Urea Nitrogen 12 mg/dL (7-17); Calcium 8.5 mg/dL (8.4-10.2); Carbon Dioxide 26 mmol/L (22-30); Chloride 104 mmol/L (98-107); Estimated Glomerular Filt Rate > 60; Glucose 105 mg/dL (65-110); Potassium 3.7 mmol/L (3.4-5.0); Sodium 139 mmol/L (137-145)
== END 2021-09-25 12:09 | disposition home or self-care (01) ==
PROVIDERS: Visit Provider Surgery
DX: K35.32 Acute appendicitis with perforation, localized peritonitis, and gangrene, without abscess (principal); R74.01 Elevation of levels of liver transaminase levels
CPT/HCPCS: 36415; 80053; 85025

== ENCOUNTER → 2021-10-02 12:37 | Outpatient (CLI) | payer OTHER, SELFPAY ==
--- NOTE | ~2021-10-02 | CT_ITS ---
EXAMINATION: CT abdomen pelvis w con DATE: 10/02/2021 13:05 INDICATION: K35.32 - Acute appendicitis with perforation and localize... TECHNIQUE: Computed tomography (CT) of the abdomen and pelvis was performed with 100 mL Omnipaque-350 intravenous contrast. Automated exposure control and iterative reconstruction technique were employe d. The dose-length product was 1061.40 mGy-cm. COMPARISON: 09/18/2021. FINDINGS: Lower thorax: Bibasilar scarring. Liver: Normal. Biliary/Gallbladder: Gallbladder is normal. No bile duct dilation. Pancreas: No mass or duct dilation. Spleen: Normal. Adrenals:Indeterminate 1.6 cm left adrenal mass. Kidneys: No mass, stone, or hydronephrosis. GI tract: No small or large bowel dilation. Appendix no longer dilated. No appendicolith visualized. Mesentery/Peritoneum: Interval near complete resolution of the previously described 10.7 cm midline p elvic and subhepatic abscesses. Considerable reduction in size of the 3.5 cm terminal ileum abscess. Decreased size of the abscess in the hysterectomy bed, now measuring 6.4 cm in greatest dimension. Sl ightly decreased size of the multifocal small abscesses along the terminal ileum. Persistent inflamma tory change in the right paracolic gutter and deep pelvis. Retroperitoneum: No mass. Pelvis: Pelvic organs are within normal limits. Soft Tissues: Soft tissues and body wall unremarkable. Bones: No acute osseous finding. IMPRESSION: Improving abdominopelvic abscesses. Near-complete interval resolution of the midline pelvic and subhe patic abscesses. Considerable decreased size of the abscess adjacent to the terminal ileum. Moderate decreased size of the abscess in the deep pelvis. Reviewed, dictated and finalized at location K. IMPRESSION: Improving abdominopelvic abscesses. Near-complete interval resolution of the mi dline pelvic and subhepatic abscesses. Considerable decreased size of the absce ss adjacent to the terminal ileum. Moderate decreased size of the abscess in th e deep pelvis.
== END ==
PROVIDERS: Visit Provider Surgery
DX: K35.33 Acute appendicitis with perforation, localized peritonitis, and gangrene, with abscess (principal)
CPT/HCPCS: 74177; Q9967

== ENCOUNTER 2021-11-21 01:52 | Day surgery (SDC) | payer OTHER, SELFPAY ==
[2021-11-15 13:41] VITALS: BMI 39.7
--- NOTE | 2021-11-15 13:45 | PC.NURSE ---
Report to the Outpatient Waiting Room, entrance under the green pavilion located off [facility], at time 0900___ on date _11/21/21_. OR Time: __1100_. - You and your visitor will be asked a series of questions to screen for COVID 19 for your protection. - Only one visitor is allowed at this time. - The patient visitor is requested to leave or wait in car when not with patient. - A mask is required within the hospital. Patients may have clear liquids (water, carbonated beverages, clear teas, apple juice) until 3 hours prior to surgery with a maximum of 20 ounces. - No food from midnight until time of surgery - Infants may have breast milk until 4 hours before surgery, formula 6 hours prior to surgery. - Children will be allowed to drink immediately following surgery. If applicable, please bring a bottle or sippy cup to assist with drinking. Juice, water, soda, and popsicles are readily available. For infants on formula, please bring formula the day of surgery. Pacifiers are allowed. Take the following medications with a SIP of water the morning of surgery: ___NONE Medications to discontinue per physician VITAMIN Date to take last dose__11/18/21 Please no make-up, nail mohawk, hairspray, perfume, deodorant, or body powder the day of surgery. No jewelry (including any body piercings) or valuables the day of surgery, leave them at home. Please take a shower or bath the night before, or the morning of, surgery with an antibacterial soap. Wear comfortable, loose fitting clothing. Children are encouraged to wear pajamas. - Jewelry must be removed prior to entering the operating room. Rings and piercings that are not removed may be cut off. - The hospital will not accept responsibility for valuables. - Please leave all valuables, including medications, at home the day of surgery. If you are going home after surgery, a licensed star route mail driver must drive you home. - NO public transportation without another adult. - We recommend that an adult stay with you for 24 hours following discharge. - We also recommend that you do not drive, make important decision, drink alcoholic beverages, or take any drugs that were not prescribed by your health care provider for at least 24 hours after your discharge time. For Pediatric surgeries, we recommend two adults accompany the child home (only one inside the building at this time). Follow any additional instructions given to you from your surgeon. If you or anyone in your household have experienced Covid symptoms in the past week, please notify your surgeon or the nurse liaison at the phone number below for possible testing. Telephone instructions given to __PATIENT ____and asked if any additional questions and then verbalized understanding. Patient advised to call surgeon office or pre surgery nurse liaison [phone] if any additional questions.
[2021-11-21] VITALS (8 sets, daily range): BP systolic 108–157; BP diastolic 73–102; PULSE 59–89; RESP 12–20; TEMP 36.2–37.1; O2SAT 94–100
--- NOTE | 2021-11-21 08:59 | P.PNAN_ITS ---
Anes - Initial Pre Proc Eval Procedure: Operation Date: 11/21/21 13:00 Proposed Procedures p Laparoscopic Appendectomy, Possible Open - Pancho Montes DO Date/Time: 11/21/21 08:59 Surgeon: Pancho Montes DO Pre Op Diagnosis: acute perforated appendicitis Patient Data Age: 51 Gender: F Height: 1.63 m Weight: 105 kg Allergies Allergy/AdvReac Type Severity Reaction Status Date / Time No Known Allergies Allergy Verified 11/15/21 13:35 Home Medications Medication Instructions Recorded Confirmed Type aspirin 81 mg tablet,delayed 81 mg PO DAILY 09/18/21 10/12/21 History release cholecalciferol (vitamin D3) 50 50 mcg PO DAILY 09/18/21 10/12/21 History mcg (2,000 unit) tablet doxycycline hyclate 50 mg tablet 25 mg PO BID 09/18/21 10/12/21 History loratadine 10 mg tablet 30 mg PO DAILY 09/18/21 10/12/21 History Patient hx anesthesia problems: none Family hx anesthesia problems: none Results Review: All pre-operative results and documents have been reviewed as part of the pre- operative evaluation. FORMERLY [facility] Past Medical History Medical History (Updated 11/21/21 @ 09:01 by Jarred Young MD) Obesity Rosacea Tobacco abuse Surgical History Surgical History History of tubal ligation History of vaginal hysterectomy Family History Family History Mother Hypertension Social History Social History Social History: PCP through [facility]: Dr. Domi Albert Smoking packs per day: 0.5 Smoking cigarettes per day: 10.0 Years smoked: 35 Smoking pack-years: 17.50 Smoking status: Current every day smoker Tobacco type: cigarettes Second hand tobacco smoke exposure: No Alcohol intake: current Drinks per week: 4 Substance use: never Substance use type: does not use Living arrangements: alone Additional living arrangements comments: Lives at home alone with her dog. She is not currently and has one child. 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 Gender identity (if verbalized by the patient): Female Spiritual care concerns: No Anes - Eval Final PreProcedure Day of Procedure 11/21/21 08:59 Patient weight: morbidly obese Heart: regular rate and rhythm Lungs: clear to auscultation and normal air movement Airway: Mallampati scale class II Neurological: alert and oriented Last oral intake: >/= 8 hours ASA classification: III Emergent: no Anesthetic plan: proceed Anesthesia type and monitoring: general ETT Results Review: All pre-operative results and documents have been reviewed as part of the pre-operative evaluation. Informed Consent: The patient's anesthetic plan and its attendant risks and benefits were discussed with the patient/family/POA. Questions were solicited and answers provided to the satisfaction of the patient/family/POA.
[2021-11-21] MEDS: LACTATED RINGERS 1,000 ML 30 ML IV CONT ×2 (11:33→14:27)
--- NOTE | 2021-11-21 12:34 | WPDHPUPDATE1 ---
History and Physical Update Update Date/Time: 11/21/21 12:34 History and Physical has been reviewed, including an updated exam of the patient. There are NO changes in the patient's condition. Risks, benefits, and alternatives have been discussed and questions answered. Patient agrees to proceed with procedure.
--- NOTE | 2021-11-21 12:34 | PM.IMHP ---
H&P: HPI History of Present Illness Date/Time: 11/21/21 12:34 Chief Complaint: Appendicitis Narrative: This is a 51-year-old woman who had a prior episode of appendicitis with abscess. About 2 months ago she underwent percutaneous drainage of an abscess and recovered well from this. Her drain was eventually removed and she has been doing well since. She now presents for laparoscopic appendectomy. She denies any changes since last seen in the office. Review of Systems Review of Systems: All systems reviewed & are unremarkable except as noted in HPI and below Constitutional: Constitutional: Denies chills, Denies fever(s), Denies headache(s) and Denies weight loss Eyes: Eyes: Denies change in vision ENT: Denies dizziness, Denies headache(s), Denies neck mass and Denies throat swelling Cardiovascular: Cardiovascular: Denies chest pain, Denies lightheadedness and Denies dyspnea Respiratory: Respiratory: Denies cough, Denies dyspnea and Denies wheezing Gastrointestinal: Gastrointestinal: Denies abdominal pain, Denies change in bowel habits, Denies nausea and Denies vomiting Genitourinary: Genitourinary: Denies hematuria and Denies dysuria Musculoskeletal: Musculoskeletal: Reports as per HPI Integumentary/Breasts: Skin/Breast: Reports as per HPI Neurologic: Denies dizziness and Denies headache(s) Allergic/Immunologic: Allergic/Immunologic: Denies throat swelling and Denies wheezing FOR[facility]LY [facility] Past Medical History Medical History (Updated 11/21/21 @ 09:01 by Jarred Young MD) Obesity Rosacea Tobacco abuse Surgical History Surgical History History of tubal ligation History of vaginal hysterectomy Family History Family History Mother Hypertension Social History Social History Social History: PCP through [facility]: Dr. Domi Albert Smoking packs per day: 0.5 Smoking cigarettes per day: 10.0 Years smoked: 35 Smoking pack-years: 17.50 Smoking status: Current every day smoker Tobacco type: cigarettes Second hand tobacco smoke exposure: No Alcohol intake: current Drinks per week: 4 Substance use: never Substance use type: does not use Living arrangements: alone Additional living arrangements comments: Lives at home alone with her dog. She is not currently and has one child. 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 Gender identity (if verbalized by the patient): Female Spiritual care concerns: No Meds Home Medications and Allergies Home Medications Medication Instructions Recorded Confirmed Type aspirin 81 mg tablet,delayed 81 mg PO DAILY 09/18/21 10/12/21 History release cholecalciferol (vitamin D3) 50 50 mcg PO DAILY 09/18/21 10/12/21 History mcg (2,000 unit) tablet doxycycline hyclate 50 mg tablet 25 mg PO BID 09/18/21 10/12/21 History loratadine 10 mg tablet 30 mg PO DAILY 09/18/21 10/12/21 History Allergies Allergy/AdvReac Type Severity Reaction Status Date / Time No Known Allergies Allergy Verified 11/15/21 13:35 Vital Signs Vital Signs - 24 hr 11/21/21 11:36 Temperature 36.2 C L Pulse Rate 89 Respiratory Rate 18 Blood Pressure 153/102 H Pulse Oximetry 100 Oxygen Delivery Room Air Exam Const: General: no acute distress and alert Orientation/consciousness: patient oriented x3 HENMT: Head: normocephalic and atraumatic Ears: hearing grossly normal bilaterally General nose exam: Normal nares present Mouth: Yes Normal oral and palatal mucosa present Eyes: Periorbital: periorbital findings normal Sclera: sclerae normal EOM: EOMs intact bilaterally Neck: Neck: normal visual inspection, no lymphadenopathy and trachea midline Chest: Chest palpation & inspection: normal ins
[2021-11-21] MEDS: KETOROLAC 15 MG/ML VIAL (*BKC) IV PUSH (12:36)
[2021-11-21] MEDS: ceFAZolin 2 GM/D5W 50 ML 2 GM/50 ML BAG IVPB (12:49)
[2021-11-21] MEDS: metroNIDAZOLE 500 MG/ISO 100ML 500 MG/100 ML BAG 100 MG IVPB (13:05)
--- NOTE | 2021-11-21 14:37 | W.PM.PROC2 ---
Procedure Note - Detailed Date of Procedure 11/21/21 Pre-op Diagnosis acute perforated appendicitis Post-op Diagnosis Same Procedure Performed 1. Laparoscopic appendectomy 2. Laparoscopic adhesiolysis Surgeon Pancho Montes, DO Anesthesia General and Local ( 0.5% bupivacaine) Indications this is a 51-year-old woman who presented to the emergency department on 09/19/2021 with right lower quadrant pain for the past week. She was found to have evidence of perforated appendicitis with multiple intra-abdominal abscesses. She was admitted and placed on IV antibiotics and underwent interventional radiology percutaneous drainage of 2 separate areas of abscess. She was doing well and was discharged on 09/22/2021. Her drains were then eventually removed in the office and a follow-up CT showed improving residual abscesses. Discussions were made with the patient that the appendix was were visible on her original CT and she does still have risks of recurrent appendicitis in the future. After discussion with the patient decision was made to proceed with interval laparoscopic appendectomy. Findings Laparoscopic appendectomy was performed. Upon entering the abdomen laparoscopically, I encountered a significant amount of adhesions around the entire lower abdomen and right lower quadrant. Extensive adhesiolysis was performed initially before even being able to identify the appendix. Adhesiolysis took about 45 minutes of total procedure time. The total procedure time was 73 minutes. This was significantly more difficult due to the amount of adhesions. Once all of the adhesions were taken down I was able to identified the cecum and traced this to the appendix. The appendix was in a slightly retrocecal location. The base of the appendix appeared healthy and viable. The appendix was removed and sent to the lab for pathology. Description of Procedure Procedure as well as risks, benefits, and alternatives were discussed with the patient. Written consent was obtained and placed in chart prior to procedure. Patient was brought back to surgical suite. She was placed supine on operating table. Time-out was done to confirm patient and procedure. She was then intubated by the anesthesia department. Her abdomen was prepped and draped in sterile fashion using chlorhexidine prep. 0.5% bupivacaine was infiltrated locally around each of the port locations. A 5 mm incision was made just to the left of the umbilicus and a 5 mm Optiview trocar was advanced through the abdominal layers under direct visualization. Once inside the abdominal cavity, carbon dioxide insufflation was used to create a pneumoperitoneum. The camera was inserted in the abdomen was inspected. Multiple adhesions were identified in the lower abdomen. The left lower quadrant appeared free of adhesions, therefore a 12 mm incision was made in the left lower quadrant and a 12 mm trocar was inserted under direct visualization. Careful adhesiolysis was performed using laparoscopic curved scissors. The lower midline adhesions appeared to be very thin and came down with careful sharp dissection with scissors. I was then able to visualize the lower midline abdomen and another 5 mm incision was made in the lower midline and a 5 mm trocar was inserted under direct visualization. Further dissection was performed and adhesiolysis was performed using sharp dissection until all of the small bowel adhesions were taken down from the right lower quadrant and lower midline. There was some sigmoid colon adhesions down to the lower midline as well. I was then able to identified the ascending colon and carefully take down some terminal ileum adhesions around the cecum. I then was able to identify the cecum just beyond the terminal ileum and I then identified the appendix base. This was traced further laterally and posteriorly behind the cecum where the body of the appendix was. The appendix was freed up completely from t
[2021-11-21] MEDS: oxyCODONE HCL (*CRX) 5 MG TAB IR PO (15:27)
== END 2021-11-21 16:11 | disposition home or self-care (01) ==
PROVIDERS: Visit Provider Surgery
PROC: 0DTJ4ZZ Resection of Appendix, Percutaneous Endoscopic Approach (ICD-10-PCS; CPT 44970; principal; 2021-11-21 13:00)
DX: K35.32 Acute appendicitis with perforation, localized peritonitis, and gangrene, without abscess (principal); K66.0 Peritoneal adhesions (postprocedural) (postinfection); Z79.82 Long term (current) use of aspirin; E66.01 Morbid (severe) obesity due to excess calories; Z68.41 Body mass index [BMI] 40.0-44.9, adult; F17.210 Nicotine dependence, cigarettes, uncomplicated
CPT/HCPCS: 44970; 88304; A9270; J0330; J0690; J1100; J1885; J2250; J2405; J2704; J2710; J3010; J7120